=== PATIENT | female | born 1985 | race Two or more races ===

== ENCOUNTER 2016-07-19 01:11 | Emergency (ER) | payer BC ==
[~2016-07-19] VITALS: Ht 152.4 cm; Wt 81.6 kg
[2016-07-19 02:03] LABS: BARBITURATES NEG (NEG); BENZODIAZEPINES NEG (NEG); CANNABINOIDS NEG (NEG); COCAINE NEG (NEG); METHADONE NEG (NEG); OPIATES NEG (NEG); PHENCYCLIDINE NEG (NEG)
[2016-07-19 02:04] LABS: ETHANOL, URINE NEG (NEG)
[2016-07-19 02:08] LABS: POTASSIUM ISTAT 3.4 mmol/L (3.5-5.0)
--- NOTE | 2016-07-19 02:19 | ED.ADGEN ---
Past Medical History Past Medical History: Anxiety Past Surgical History: No Surgical History Alcohol Use: None Drug Use: None Adult General Chief Complaint Chief Complaint: CHEST PAIN HPI HPI Patient is a 31 year old woman, history of anxiety, history of "heart murmur", who presents to the emergency department with a complaint of chest tightness and palpitations that occurred approximately 2 hours ago, that lasted for about 5 minutes. Patient states that she was seen by her doctor 2 weeks ago, and was told that she had "a slight heart murmur", and should follow-up with a real estate operations manager for an echocardiogram. She states she has not yet made an appointment for this to occur, but is been worried about this. She states that she was lying in bed tonight, when she experienced an episode of chest tightness that radiated across her anterior chest, denies any chest pain, states that it felt as though it caught her breath, denies any nausea or vomiting, states she felt slightly lightheaded when it occurred. Denies any weakness numbness or tingling, any similar to previously, any injuries. States she had had [employer] and a soda several hours before this occurred, states she does not usually have caffeine containing products together like this. Denies any other ingestions, denies any drugs, alcohol or cigarettes, any swelling extremities, any family history of heart disease or sudden cardiac in young people, and history of DVT or PE in herself or others. Patient has not had recurrence of symptoms since this 5 minute period 2 hours ago. Review of Systems Review of Systems Constitutional: Denies fever or chills. [] Eyes: Denies change in visual acuity. [] HENT: Denies nasal congestion or sore throat. [] Respiratory: Denies cough, shortness of breath that was transient associated with the chest tightness. Cardiovascular: Denies chest pain or edema. Chest tightness, resolved. GI: Denies abdominal pain, nausea, vomiting, bloody stools or diarrhea. [] : Denies dysuria. [] Musculoskeletal: Denies back pain or joint pain. [] Integument: Denies rash. [] Neurologic: Denies headache, focal weakness or sensory changes. [] Endocrine: Denies polyuria or polydipsia. [] Lymphatic: Denies swollen glands. [] Psychiatric: Denies depression or anxiety. [] Allergies Allergies Allergies Coded Allergies Type Severity Reaction Last Updated Verified No Known Drug Allergies 07/19/16 No Physical Exam Physical Exam Constitutional: Well developed, well nourished, no acute distress, non-toxic appearance. [] HENT: Normocephalic, atraumatic, bilateral external ears normal, oropharynx moist, no oral exudates, nose normal. [] Eyes: PERRLA, EOMI, conjunctiva normal, no discharge. [] Neck: Normal range of motion, no tenderness, supple, no stridor. [] Cardiovascular:Heart rate regular rhythm, no murmur [] Lungs & Thorax: Bilateral breath sounds clear to auscultation [] Abdomen: Bowel sounds normal, soft, no tenderness, no masses, no pulsatile masses. [] Skin: Warm, dry, no erythema, no rash. [] Back: No tenderness, no CVA tenderness. [] Extremities: No tenderness, no cyanosis, no clubbing, ROM intact, no edema. [] Neurologic: Alert and oriented X 3, normal motor function, normal sensory function, no focal deficits noted. [] Psychologic: Affect normal, judgement normal, mood normal. [] Current Patient Data Vital Signs Vital Signs Date Time Temp Pulse Resp B/P Pulse Ox O2 Delivery O2 Flow Rate FiO2 07/19/16 03:00 69 129/81 100 Room Air 07/19/16 01:15 98.3 18 98.3 Lab Values Laboratory Tests Test 07/19/16 00:54 07/19/16 01:48 07/19/16 02:04 POC Urine HCG, Qualitative Hcg negative (Negative) Urine Opiates Screen Neg (NEG) Urine Methadone Screen Neg (NEG) Urine Barbiturates Neg (NEG) Urine Phencyclidine Screen Neg (NEG) Urine Amphetamine/Methamphetamine Neg (NEG) Urine Benzodiazepines Screen Neg (NEG) Urine Cocaine Screen Neg (NEG) Urine Cannabinoids Screen Neg (NEG) Urine Ethyl Alcohol Neg (NEG) POC Hemoglobin 13.6g/dL (12-15) POC Hematocrit 40% (36-40) POC Sodium 140mmol/L (135-145) POC Potassium 3.4mmol/L (3.5-5.0) L POC Chloride 102mmol/L (98-110) POC Total CO2 24mmol/L (23-32) Anion Gap 18mmol/L (6-14) H POC Blood Urea Nitrogen 13mg/dL (8-26) POC Creatinine 0.6mg/dL (0.5-1.4) Glucose Level 94mg/dL (70-99) POC Ionized Calcium (Maria Ines) 1.22mmol/L (1.13-1.32) Laboratory Tests 07/19/16 02:04 EKG EKG EC: Sinus rhythm, heart rate 91 bpm, upright axis, QTC of 437, VA 136, QRS of 90, no ST elevations or depressions, no evidence of acute ST abnormalities. As interpreted by me. Radiology/Procedures Radiology/Procedures Chest x-ray: PA and lateral: 2 view: Normal cardiopulmonary silhouette, no infiltrates, no effusions, no pneumothorax, no soft tissue or bony abnormalities identified. As interpreted by me. Course & Med Decision Making Course & Med Decision Making Pertinent Labs and Imaging studies reviewed. (See chart for details) Patient well-appearing, is asymptomatic at this time, heart rate in the 80s to low 100s, she states that she does feel anxious, has felt anxious about concern for a heart murmur since this was discussed with her primary care provider several weeks ago. I do not appreciate a murmur listening to the patient in the ED, patient's heart rate noted to be in the 80s and 90s at this time, although does increase during her conversation when she states she becomes anxious. Is experiencing no chest pressure, no palpitations currently. Chest x-ray is unremarkable, ECG does not reveal any evidence acutely concerning findings. Patient ambulated in the emergency department, no difficulties, no tachycardia or other concerning finding identified. I did discuss with patient avoidance of caffeinated beverages, she did have both [employer] coffee and soda this evening , which could've contributed, although I believe that anxiety is also playing a part. We discussed the following up with a real estate operations manager for additional evaluation would be beneficial, although we did not identify any concerning findings this morning which would require immediate admission or intervention. Patient is agreeable to this plan, was given contact information for Dr. Medrano of cardiology. We discussed concerning symptoms that would prompt return to the emergency department, patient voiced understanding and agreement. Patient discharged home with her in stable condition with plan as above. Dragon Disclaimer Dragon Disclaimer This electronic medical record was generated, in whole or in part, using a voice recognition dictation system. Departure Impression: Primary Impression: Heart palpitations Disposition: HOME, SELF-CARE Condition: IMPROVED RUSTY PARSONS DO Jul 19, 2016 02:19
[2016-07-19 03:00] VITALS: BP 129/81
--- NOTE | 2016-07-19 07:27 | RAD ---
Chest, 2 views, 07/19/2016: History: Chest pain The heart size and pulmonary vascularity are normal. No pulmonary infiltrates are seen. There is no evidence of pleural fluid. IMPRESSION: No acute cardiopulmonary abnormality is detected.
--- NOTE | 2016-07-19 09:50 | EKG ---
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
== END 2016-07-19 03:04 | disposition home or self-care (01) ==
LOC: ER 01:12
DX: R00.2 Palpitations (principal); F41.9 Anxiety disorder, unspecified
CPT/HCPCS: 71020; 80047; 80305; 81025; 84703; 93005; G0481; 99285-25